=== PATIENT | female | born 1975 | race Caucasian/White ===

== ENCOUNTER 2016-12-15 12:02 | Emergency (ER) | payer OTHER ==
[2016-12-15 12:20] LABS: Hematocrit 43.5 % (37.0-47.0); Hemoglobin 14.8 gm/dL (12.5-16.0); Mean Cell Volume 89.9 fl (78-100); Mean Corpuscular Hemoglobin 30.6 pg (27-31); Mean Platelet Volume 10.2 fl (6.0-9.5); Neutrophil # 5.7 K/mm3 (1.3-6.0); Neutrophil % 58.6 % (42-75.0); Platelet Count 321 K/mm3 (150-450); Red Blood Count 4.84 M/mm3 (4.2-5.4); Red Cell Distribution Width 12.7 % (11.5-14.0); White Blood Count 9.8 K/mm3 (4.0-10.5)
--- NOTE | 2016-12-15 12:24 | ERNOTE ---
Chest Pain/Cardiac HPI Date of Service: 12/15/16 Chief Complaint: Chest Pain Time Seen by Provider: 12/15/16 12:21 Source: patient, family Exam Limitations: no limitations Allergies/Adverse Reactions: Allergies Sulfa (Sulfonamide Antibiotics) Allergy (Severe, Verified 12/15/16 12:10) Anaphylaxis acetaminophen [From Percocet] Allergy (Verified 12/15/16 12:10) NAUSEA/VOMITING oxycodone HCl [From Percocet] Allergy (Verified 12/15/16 12:10) NAUSEA/VOMITING codeine Adverse Reaction (Intermediate, Verified 12/15/16 12:10) Vomiting doxycycline Adverse Reaction (Intermediate, Verified 12/15/16 12:10) Vomiting Home Medications: HOME MEDICATIONS Diclofenac Sodium [Voltaren] 75 mg PO TID #60 tablet 12/15/16 [Last Taken Unknown] LORazepam [Ativan] 0.5 mg PO TID #60 tablet 12/15/16 [Last Taken Unknown] Narrative: This is a 41 y/o woman who has been having more trouble for the last 1-2 months. Can't get a deep enough breath, near syncope, palpitations, right sided chest pain and pain and numbness in the right arm. Right knee pain, worsening every since her left knee surgery, with right buttock pain, too. Today, ever since she woke, symptoms more severe, felt as if she couldn't swallow. Saw her doctor recently, who started her on antibiotics for an ear infection. Has had some of these symptoms since she was about 20, but never severe. Feels worthless. Stress over children. Here in the office, we had her hyperventilate briefly, and reproduced her symptoms. Timing: getting worse Severity/Quality: moderate, severe Location: other Chest Pain Radiation: no radiation Activities at Onset: none Modifying Factors - Improves: Present: nothing Modifying Factors - Worsens: Present: breathing, coughing, exercise, movement Associated Symptoms: Present: dizziness, syncope, shortness of breath, palpitations, weakness Prior Chest Pain/Cardiac Workup: Reports: prior chest pain Prior Treatment: Reports: recently seen, currently on antibiotics Review of Systems - Review of Systems Constitutional: Present: malaise EYE: Present: no symptoms reported ENT: Present: no symptoms reported Respiratory: Present: See HPI Cardiology: Present: See HPI Gastrointestinal/Abdominal: Present: no symptoms reported Genitourinary: Present: no symptoms reported Musculoskeletal: Present: See HPI Skin: Present: no symptoms reported Neurological: Present: no symptoms reported Endocrine: Present: no symptoms reported Hematologic/Lymphatic: Present: no symptoms reported Psych: Present: other All Other Systems: All systems neg except as marked - Patient's Past Medical History Patient History - Medical: Anxiety Patient History - Cardiac/Respiratory: No pertinent hx Patient History - Cancer: No Hx of Cancer Patient History - Surgical Procedures: , Tubal Ligation Patient History - Other: None - Social History Living Situations: home Abuse History: No History of abuse Psych History: No pertinent hx Smoking Status: Current every day smoker Have you smoked in the past 12 months: Yes Alcohol Use: occasionally Drug Use: other Physical Exam - Physical Exam General Appearance: Present: wd/wn, alert, mild distress, anxious, obese Eye Exam: Normal inspection: bilateral, PERRL: bilateral, EOMI: bilateral Ears, Nose, Throat: Present: normal ENT inspection Neck: Present: normal inspection Respiratory: Present: no respiratory distress, normal breath sounds, no accessory muscle use, lungs clear, chest tenderness - right costochondral junction Cardiovascular/Chest: Present: regular rate, rhythm, no murmur Gastrointestinal/Abdominal: Present: normal bowel sounds, nontender, nondistended, soft, no organomegaly Back Exam: Present: normal inspection Extremity Exam: Present: normal inspection, no edema, other - right trapezius trigger point Neurological Exam: Present: alert, oriented Skin Exam: Present: normal color, warm/dry ED Progress - Results and Orders Patient's Lab Results:: I have reviewed the patient's lab results. - Vital Signs Patient's Vital Signs:: I have reviewed the patient's vital signs. Vital Signs: Vital Signs 12/15/16 12/15/16 12:06 12:11 Temperature 37.6 C H Pulse Rate 118 H 103 H Respiratory 17 Rate Blood Pressure 128/81 O2 Sat by Pulse 97 Oximetry - EKG EKG read: Interp. by me - sinus tachycardia, otherwise non specific changes. - X-Ray X-Ray #1 X-Ray: chest Interpretation: Reviewed by me - chronic bronchitis, probably. - Progress/Reassessment Chief Complaint: Chest Pain Progress:: Improved Departure - Departure Clinical Impression: Musculoskeletal pain, Generalized anxiety disorder, Panic attack as reaction to stress Disposition: Home self-care Condition: Good Instructions: Musculoskeletal Pain, Panic Attacks, [id number], Hyperventilation Additional Instructions: Followup with your doctor in 1-2 weeks. Prescriptions: Diclofenac Sodium [Voltaren] 75 mg PO TID #60 tablet LORazepam [Ativan] 0.5 mg PO TID #60 tablet
[2016-12-15 12:31] LABS: INR 0.95 INR (0.90-1.10); Partial Thrombolplastin Time 29.6 Seconds (24-32); Prothrombin Time (Patient) 9.9 Seconds (9.4-11.4)
[2016-12-15 12:37] LABS: Blood Urea Nitrogen 9 mg/dL (3-23); Glucose * 105 mg/dL (70-110)
[2016-12-15 12:38] LABS: ALT 29 U/L (19-67); AST 16 U/L (0-48); Albumin * 3.7 gm/dl (3.4-5.0); Alkaline Phosphatase * 83 U/L (50-170); Anion Gap 11.7 mmol/L (6.8-13.8); BUN/Creatinine Ratio 11.8 (9.0-21.6); Bilirubin, Total 0.4 mg/dL (0.0-1.1); Ca. Corrected For Albumin 8.4 mg/dL (8.4-10.2); Calcium * 8.5 mg/dL (7.9-10.9); Carbon Dioxide 24.9 mmol/L (24-32.6); Chloride 104 mmol/L (97-106); Potassium 3.6 mmol/L (3.4-4.6); Sodium 137 mmol/L (132-142); Total Protein 7.6 gm/dL (6.2-8.2); Troponin I Less than 0.017 ng/ml (0.00-0.10)
[2016-12-15] MEDS ORDERED: DICLOFENAC SODIUM 75 MG TABLET.DR PO ONE (12:53)
[2016-12-15] MEDS ORDERED: LORazepam 1 MG TABLET PO ONE (12:54)
[2016-12-15] MEDS ORDERED: LORazepam 1 MG TABLET ONE (12:58)
[2016-12-15] MEDS ORDERED: DICLOFENAC SODIUM 50 MG TABLET.DR PO ONE (12:58)
--- OUTSIDE RECORDS SUMMARY | 2016-12-15 13:00 | XMS REPORT | Continuity of Care Document ---
:1975 Author Organization [facility] ([facility]) Address [address] [place] [address] Phone [phone] Care Team Providers Name Role Phone Aryan Daly Primary Care Provider [phone] Source Comments This disclosure is being made pursuant to the Care Everywhere program, applicable federal and state laws, and may not contain all informaitonavailable regarding this patient.[facility] ([facility]) Active Allergies and Adverse Reactions Allergen Noted Date Severity Reactions Comments Oxycodone-Acetaminophen 06/04/2016 Nausea & Vomiting Sulfa (Sulfonamide Antibiotics) 06/04/2016 High Anaphylactic Shock Current Medications Prescription Sig. Disp. Refills Start Date End Date Status IBUPROFEN (ADVIL PO) Active naproxen PO Active ACETAMINOPHEN (TYLENOL PO) Take by mouth as Active needed. MULTIVIT-MINERALS/FOLIC Active ACID (ONE DAILY GUMMY VITES PO) Active Problems Problem Noted Date Knee pain, left 06/04/2016 Social History Tobacco Use Types Packs/Day Years Used Date Current Every Day Smoker Cigarettes 1.5 20 Smokeless Tobacco: Never Used Tobacco Cessation:Counseling Given: Yes Comments: Alcohol Use Drinks/Week oz/Week Comments Yes 4 Standard drinks or equivalent Last Filed Vital Signs Vital Sign Reading Time Taken Blood Pressure 105/75 06/04/2016 2:35 PM CDT Pulse 99 06/04/2016 2:35 PM CDT Temperature 36.6 C (97.9 F) 06/04/2016 2:35 PM CDT Respiratory Rate - - Height 1.626 m (5' 4") 06/04/2016 2:35 PM CDT Weight 104.2 kg (229 lb 11.5 oz) 06/04/2016 2:35 PM CDT Body Mass Index 39.41 06/04/2016 2:35 PM CDT Oxygen Saturation - - Plan of Care Health Maintenance Due Date Last Done Comments Hepatitis B Vaccine (1 of 3 - Primary Series) 1975 Tdap Vaccine 1986 Lipid Disorder Screening 1993 MMR Vaccine 1993 Td Vaccine 1993 Pneumococcal Vaccine (1 of 1 - PPSV23) 1994 Cervical Cancer Screening 2005 Mammogram 2015 Influenza Vaccine: Seasonal (#1) 04/15/2016 Results from Last 3 Months Not on file
[2016-12-15 13:35] VITALS: BP 136/79
== END 2016-12-15 14:01 | disposition home or self-care (01) ==
LOC: ER 12:02
DX: R07.89 Other chest pain (principal); F41.1 Generalized anxiety disorder; F41.0 Panic disorder [episodic paroxysmal anxiety]; F17.200 Nicotine dependence, unspecified, uncomplicated; R00.0 Tachycardia, unspecified

== ENCOUNTER 2016-12-17 18:08 | Emergency (ER) | payer OTHER ==
--- OUTSIDE RECORDS SUMMARY | 2016-12-17 18:25 | XMS REPORT | Continuity of Care Document ---
:1975 Author Organization [facility] ([facility]) Address [address] [place] [address] Phone [phone] Care Team Providers Name Role Phone Aryan Daly Primary Care Provider [phone] Source Comments This disclosure is being made pursuant to the Care Everywhere program, applicable federal and state laws, and may not contain all informaitonavailable regarding this patient.[facility] ([facility]) Active Allergies and Adverse Reactions Allergen [...]
--- NOTE | 2016-12-17 19:03 | ERNOTE ---
Psychological HPI - Date Date of Service: 12/17/16 - pt seen at 1800 - General Chief Complaint: Anxiety Source: Reports: patient, EMS - Immun/Allergies/Home Medications Allergies/Adverse Reactions: Allergies Sulfa (Sulfonamide Antibiotics) Allergy (Severe, Verified 12/17/16 18:17) Anaphylaxis acetaminophen [From Percocet] Allergy (Verified 12/17/16 18:17) NAUSEA/VOMITING oxycodone HCl [From Percocet] Allergy (Verified 12/17/16 18:17) NAUSEA/VOMITING codeine Adverse Reaction (Intermediate, Verified 12/17/16 18:17) Vomiting doxycycline Adverse Reaction (Intermediate, Verified 12/17/16 18:17) Vomiting Home Medications: HOME MEDICATIONS LORazepam [Ativan] 0.5 mg PO TID #60 tablet 12/15/16 [Last Taken Unknown] - History of Present Illness Narrative: This patient comes in via EMS for a panic attack, and a sensation that she could not swallow. This happened approximately 20 minutes after she took a Zoloft 25 mg tablet prescribed to her by her primary care physician. Eyes any shortness of breath chest pain fevers chills nausea or vomiting. Time Seen by Provider: 12/17/16 18:14 Review of Systems - Review of Systems Constitutional: Present: no symptoms reported EYE: Present: no symptoms reported ENT: Present: no symptoms reported Respiratory: Present: no symptoms reported Cardiology: Present: no symptoms reported - Patient's Past Medical History Patient History - Medical: Anxiety Patient History - Cardiac/Respiratory: No pertinent hx Patient History - Cancer: No Hx of Cancer Patient History - Surgical Procedures: , Tubal Ligation Patient History - Other: None LMP (females 10-50): other - Social History Living Situations: home Abuse History: No History of abuse Psych History: No pertinent hx Alcohol Use: occasionally Drug Use: other - Immunizations Immunizations Up to Date: Yes Physical Exam - Physical Exam General Appearance: Present: wd/wn, alert, no apparent distress - by the time PATIENT PATIENT WAS FEELING SIGNIFICANTLY BETTER AND MORE RELAXED. Ears, Nose, Throat: Present: normal ENT inspection, other - patient is well able to swallow her secretions and she no longer exhibits signs of dysphagia she is significantly calmer now and her EKG is normal sinus rhythm. Neck: Present: normal inspection, nontender Respiratory: Present: no respiratory distress, normal breath sounds, chest nontender, lungs clear Cardiovascular/Chest: Present: regular rate, rhythm, no murmur, normal peripheral pulses Gastrointestinal/Abdominal: Present: normal bowel sounds, nontender ED Progress - Vital Signs Patient's Vital Signs:: I have reviewed the patient's vital signs. Vital Signs: Vital Signs 12/17/16 12/17/16 18:10 18:17 Temperature 36.8 C Pulse Rate 104 H 94 Respiratory 15 Rate Blood Pressure 132/84 O2 Sat by Pulse 96 Oximetry - EKG EKG read: Interp. by me - Progress/Reassessment Chief Complaint: Anxiety Plan - Plan Plan: I believe this patient had an episode of anxiety associated with globus hystericus her condition has completely subsided at this time, and she feels fine Departure Clinical Impression: Globus hystericus - Departure Disposition: Home self-care Condition: Good Instructions: Panic Attacks, [id number] Additional Instructions: Please follow-up with your primary care physician within 24-48 hours and stop the Zoloft
[2016-12-17 19:52] VITALS: BP 118/86
== END 2016-12-17 19:10 | disposition home or self-care (01) ==
LOC: ER 18:08
DX: F45.8 Other somatoform disorders (principal); F41.9 Anxiety disorder, unspecified